=== PATIENT | female | born 1955 | race Caucasian/White ===

== ENCOUNTER 2018-05-24 18:32 | Emergency (ER) | payer SELFPAY ==
[~2018-05-24] VITALS: Ht 167.6 cm; Wt 97.5 kg
[2018-05-24] MEDS ORDERED: BUPR100 PO (18:50)
[2018-05-24] MEDS ORDERED: VENL37.5ER PO (18:51)
[2018-05-24] MEDS ORDERED: AMLO10 PO (18:51)
[2018-05-24] MEDS ORDERED: QUIN10 PO (18:51)
[2018-05-24] MEDS ORDERED: METO50 PO (18:52)
[2018-05-24 19:51] LABS: BASOPHILS ABSOLUTE AUTO 0.01 K/mm3 (0.00-0.23); BASOPHILS PERCENT AUTO 0 % (0-2); EOSINOPHILS PERCENT AUTO 0 % (0-6); Hematocrit 38.5 % (33.0-51.0); Hemoglobin 13.3 g/dL (11.5-16.0); IMMATURE GRAN ABSOLUTE AUTO 0.06 K/mm3 (0.00-0.10); IMMATURE GRAN PERCENT AUTO 1 % (0-1); LYMPHOCYTES ABSOLUTE AUTO 0.88 K/mm3 (0.84-5.20); LYMPHOCYTES PERCENT AUTO 8 % (21-46); MONOCYTES ABSOLUTE AUTO 0.92 K/mm3 (0.16-1.47); MONOCYTES PERCENT AUTO 8 % (4-13); Mean Corpuscular HGB Conc 34.5 g/dL (31.5-36.5); Mean Corpuscular Volume 99 fL (80-100); Mean Platelet Volume 9.5 fL (9.1-12.4); NEUTROPHILS ABSOLUTE AUTO 9.82 K/mm3 (1.96-9.15); NEUTROPHILS PERCENT AUTO 84 % (41-73); Platelet Count 182 K/mm3 (150-400); RDW Coefficient Variation 13.1 % (11.7-14.2); RDW Standard Deviation 47.1 fL (35.1-46.3); Red Blood Cell Count 3.91 M/mm3 (3.80-5.20); White Blood Cell Count 11.69 K/mm3 (4.00-11.30)
[2018-05-24 20:15] LABS: Albumin, Blood 3.3 g/dL (3.4-5.0); Albumin/Globulin Ratio 0.8 (0.8-1.8); Bilirubin, Total 0.6 mg/dL (0.1-1.0); Bun/Creatinine Ratio 13.5 (12.0-20.0); Calcium, Blood 8.9 mg/dL (8.5-10.1); Creatinine, Blood 1.04 mg/dL (0.40-1.00); Globulin, Blood 4.2 g/dL (2.2-4.0); Potassium, Blood 3.5 mmol/L (3.5-5.5); Total Protein, Blood 7.5 g/dL (6.4-8.2)
[2018-05-24] MEDS ORDERED: CEPH500 PO (22:37)
[2018-05-24] MEDS ORDERED: Bactrim Ds Tab1 EACH PO (22:37)
== END 2018-05-24 22:55 | disposition home or self-care (01) ==
LOC: ER 18:32
PROVIDERS: Physician Assistant
DX: L03.213 Periorbital cellulitis (principal); L02.01 Cutaneous abscess of face
CPT/HCPCS: 36415; 70487; 80053; 83605; 85025; 87040; 96365; 96367; 99284-25; J0696; J3370; J7030; J7050; Q9967

== ENCOUNTER 2021-01-04 08:13 | Day surgery (SDC) | payer BC ==
[~2021-01-04 08:13] MED LIST: AMLO10 PO; BUPR100 PO; Bactrim Ds Tab1 EACH PO; CEPH500 PO; METO50 PO; QUIN10 PO; VENL37.5ER PO
== END 2021-01-04 23:35 | disposition home or self-care (01) ==
LOC: MOI US 08:13
DX: C50.912 Malignant neoplasm of unspecified site of left female breast (principal); Z17.0 Estrogen receptor positive status [ER+]
CPT/HCPCS: 19083; 77065; 88305; 88342; 88360; A4648; G0279

== ENCOUNTER 2021-12-20 12:02 | Day surgery (SDC) | payer BC ==
[~2021-12-20] VITALS: Ht 167.6 cm; Wt 95.2 kg
== END 2021-12-20 14:07 | disposition home or self-care (01) ==
LOC: ORSCSDS 12:02
PROVIDERS: Internal Medicine Gastroenterology
PROC: 0DJD8ZZ Inspection of Lower Intestinal Tract, Via Natural or Artificial Opening Endoscopic (ICD-10-PCS; principal; 2021-12-20 13:15)
DX: Z12.11 Encounter for screening for malignant neoplasm of colon (principal); K57.30 Diverticulosis of large intestine without perforation or abscess without bleeding; K64.8 Other hemorrhoids; I10 Essential (primary) hypertension; Z79.899 Other long term (current) drug therapy
CPT/HCPCS: J2704; J7120